=== PATIENT | female | born 2000 | race Caucasian/White ===

== ENCOUNTER 2021-12-05 14:05 | Emergency (ER) | payer OTHER ==
[2021-12-05 14:48] LABS: #Eosinphils 0.1 10x3/uL (0.0-0.5); #Monocytes 0.3 10x3/uL (0.0-1.1); #Neutrophils 2.6 10x3/uL (1.5-8.4); %Basophils 0.8 % (0.0-2.0); %Eosinophils 1.9 % (0.0-6.0); %Lymphocytes 35.4 % (18.0-47.0); %Monocytes 6.7 % (0.0-10.0); Hemoglobin 12.6 g/dL (12.0-15.5); Mean Corpuscular HGB CONC 34.5 g/dL (32.0-36.0); Mean Corpuscular Hemoglobin 29.6 pg (27.0-33.0); Mean Corpuscular Volume 85.9 fl (81.6-98.3); Platelet Count 204 10x3/uL (150-450); RBC Distribution Width 12.2 % (11.5-14.5); Red Blood Cell (RBC) Count 4.25 10x6/uL (3.90-5.03); White Blood Cell (WBC) Count 4.8 10x3/uL (3.5-10.5)
[2021-12-05 14:49] LABS: Pregs Control Background? CLEAR/WHITE (CLR/WHITE); Pregs Control Bar Appear? YES (CONTROL BAR)
[2021-12-05 14:56] LABS: BHCG - Serum Negative (NEGATIVE)
[2021-12-05 15:01] LABS: ALT (SGPT) 13 U/L (8-55); AST (SGOT) 18 U/L (5-34); Albumin 4.1 g/dL (3.5-5.0); Alkaline Phosphatase 64 U/L (40-110); Anion Gap 12 mmol/L (10-20); BUN (Urea Nitrogen) 10 mg/dL (7.0-18.7); Bilirubin, Total 1.4 mg/dL (0.2-1.2); Calc. Creatinine Clearance 0 mL/min (70-130); Calcium 9.1 mg/dL (7.8-10.44); Carbon Dioxide 22 mmol/L (22-29); Chloride 107 mmol/L (98-107); Estimated GFR 107; Globulin 2.6 g/dL (2.4-3.5); Glucose 98 mg/dL (70-105); Potassium 3.6 mmol/L (3.5-5.1); Protein, Total 6.7 g/dL (6.0-8.3); Sodium 137 mmol/L (136-145)
== END 2021-12-05 17:15 | disposition home or self-care (01) ==
LOC: CSHERS 14:05
DX: R55 Syncope and collapse (principal); R51.9 Headache, unspecified
CPT/HCPCS: 36415; 70450; 80053; 84703; 85025; 93005; 96360